=== PATIENT | female | born 1975 | race Caucasian/White ===

== ENCOUNTER 2016-09-19 11:01 | Emergency (ER) | payer SELFPAY ==
[~2016-09-19] VITALS: Ht 172.7 cm; Wt 125.0 kg
[2016-09-19 11:02] VITALS: BP 131/78; PULSE 83; RESP 15; TEMP 98.2; O2SAT 98
--- NOTE | 2016-09-19 11:14 | PD ---
HPI Chief Complaint: Facial Pain or Swelling Time Seen by Provider: 11:14 Travel History International Travel<30 days: No Contact w/Intl Traveler<30days: No Traveled to known affect area: No History of Present Illness HPI 41-year-old female presents to the ED for evaluation of facial edema, tenderness of the scalp since this morning. Patient states that she awoke with burning scalp pain and swelling of the forehead this morning. She complains of dull frontal headache. She denies fevers, pruritis, vision changes, dizziness, breathing difficulties, nausea, vomiting. She thinks this may be due to dying her hair with a new dye 3 days ago. She has never had a similar reaction. No treatment at home. [facility] Social History Tobacco Use: No Allergies-Medications (Allergen,Severity, Reaction): Coded Allergies: No Known Allergies (Unverified , 09/19/16) Reported Meds & Prescriptions Reported Meds & Active Scripts Active Prednisone 20 Mg Tab 20 Mg PO BID Benadryl Allergy (Diphenhydramine HCl) 25 Mg Tab 25 Mg PO Q4-6H PRN Review of Systems Except as stated in HPI: all other systems reviewed are Neg Physical Exam Narrative GENERAL: Well-nourished, well-developed [place] female in no acute distress. SKIN: Warm and dry. Mild, nontender, nonpitting edema of the forehead, extending to the eyebrows, HEAD: Normocephalic. Atraumatic. The scalp is tender and mildly edematous without erythema, warmth. EYES: No scleral icterus. No injection or drainage. PERRLA. EOMI. ENT: Pearly pickard tympanic membranes bilaterally. Nasal mucosa is moist. Oropharynx without erythema, edema or exudate. Uvula midline. Floor of mouth is soft. Airway patent. NECK: Supple, trachea midline. No JVD or lymphadenopathy. CARDIOVASCULAR: Regular rate and rhythm without murmurs, gallops, or rubs. RESPIRATORY: Breath sounds clear and equal bilaterally. No accessory muscle use. GASTROINTESTINAL: Abdomen soft, non-tender, nondistended. + Bowel sounds MUSCULOSKELETAL: No cyanosis, or edema. Ambulatory. Moves the extremities spontaneously. BACK: Nontender without obvious deformity. No CVA tenderness. Data Data Last Documented VS Vital Signs Date Time Temp Pulse Resp B/P Pulse Ox O2 Delivery O2 Flow Rate FiO2 09/19/16 13:15 78 16 130/72 98 09/19/16 11:02 98.2 Orders Iv Access Insert/Monitor (09/19/16 11:24) Diphenhydramine Inj (Benadryl Inj) (09/19/16 11:30) Prednisone (Deltasone) (09/19/16 11:30) Sodium Chlor 0.9% 1000 Ml Inj (Ns 1000 M (09/19/16 11:24) Sodium Chloride 0.9% Flush (Ns Flush) (09/19/16 11:30) MDM Medical Decision Making Medical Screen Exam Complete: Yes Emergency Medical Condition: Yes Differential Diagnosis allergic reaction versus angioedema versus contact dermatitis versus cellulitis versus other Narrative Course 41-year-old female presents to the ED for evaluation of facial edema, tenderness of the scalp since this morning. Patient states that she awoke with burning scalp pain and swelling of the forehead this morning. She complains of dull frontal headache. She denies fevers, vision changes, dizziness, breathing difficulties, nausea, vomiting. She thinks this may be due to dying her hair with a new dye 3 days ago. She has never had a similar reaction. Vitals reviewed. Physical exam reveals a nontoxic-appearing [place] female in no acute distress. The scalp is tender and mildly edematous but there is no edema or warmth. She does have very thick hair which limits the exam to some degree. There is nontender, non-pitting edema of the forehead to the eyebrows. Airway is patent. Floor of the mouth is soft. No cervical LAD. No lower extremity edema. IV was established. Patient was administered 1 L normal saline , IV Benadryl and 40mg prednisone by mouth. I suspect this is an allergic reaction. Will prescribe by mouth Benadryl and a short course of steroids. Patient is instructed to discontinue use of the hair dye, take medications as prescribed, return for worsening symptoms, otherwise follow up with primary care. She indicated understanding and is agreeable to the care plan. She is stable and discharged home. Diagnosis Primary Impression: Allergic reaction to dye Qualified Code: T50.995A - Allergic reaction to dye, initial encounter Referrals: Primary Care Physician Patient Instructions: Contact Dermatitis (ED), General Allergic Reaction (ED), General Instructions Additional Instructions: Rest, hydrate. Avoid the hair dye that you recently used. Continue Benadryl dosing today. First dose 330pm. Begin Prednisone dosing tomorrow morning. Cool showers to avoid worsening of symptoms. Follow up with the primary care. Return to the ED for worsening symptoms or any urgent or emergent medical addition. Med/Other Pt SpecificInfo: Prescription(s) given Scripts Prednisone 20 Mg Tab20 Mg PO BID #8 TAB Ref 0 Prov:Alex Khan MD 09/19/16 Diphenhydramine (Benadryl Allergy)25 Mg Tab25 Mg PO Q4-6H PRN (ALLERGIES) #15 TAB Ref 0 Prov:Alex Khan MD 09/19/16 Disposition: 01 DISCHARGE HOME Condition: Stable Dorene Hernandez Sep 19, 2016 11:14
[2016-09-19] MEDS ORDERED: SODIUM CHLOR 0.9% 1000 ML INJ 1,000 ML IV SCH (11:24)
[2016-09-19] MEDS ORDERED: diphenhydrAMINE HCL 50 MG/ML VIAL IVP ONE (11:30)
[2016-09-19] MEDS ORDERED: SODIUM CHLORIDE 0.9% FLUSH 10 ML FLUSH IV FLUSH PRN (11:30)
[2016-09-19] MEDS ORDERED: predniSONE 20 MG TAB PO ONE (11:30)
[2016-09-19] MEDS ORDERED: BENA25TA3 PO (12:37)
[2016-09-19] MEDS ORDERED: PRED20 PO (12:37)
[2016-09-19 13:15] VITALS: BP 130/72
[2016-09-20] MEDS ORDERED: PRED20 PO (11:44)
[2016-09-20] MEDS ORDERED: VIST50CA PO (11:44)
== END 2016-09-19 13:15 | disposition home or self-care (01) ==
LOC: NEPD 11:01
DX: T50.995A Adverse effect of other drugs, medicaments and biological substances, initial encounter (principal)
CPT/HCPCS: 96361; 96374; 99284; J1200; J7030; J7512

== ENCOUNTER 2016-09-20 11:17 | Emergency (ER) | payer SELFPAY ==
[~2016-09-20] VITALS: Ht 177.8 cm; Wt 126.0 kg
[~2016-09-20 11:17] MED LIST: BENA25TA3 PO; PRED20 PO
[2016-09-20 11:18] VITALS: BP 144/87; PULSE 73; RESP 18; TEMP 98.5; O2SAT 98
--- NOTE | 2016-09-20 11:32 | PD ---
Physical Exam Time Seen by Provider: 11:29 Narrative 41yo F c/o allergic reaction to hair dye. Was seen here yesterday with swelling of her forehead and woke up with swelling of bilateral eyes. Denies airway edema, SOB. Patient seen in triage. VS reviewed. Awaiting bed placement. Data Data Last Documented VS Vital Signs Date Time Temp Pulse Resp B/P Pulse Ox O2 Delivery O2 Flow Rate FiO2 09/20/16 11:18 98.5 73 18 144/87 98 Room Air MDM Supervised Visit with STACIE: Odalis Milan Sep 20, 2016 11:32
[2016-09-20] MEDS ORDERED: VIST50CA PO (11:44)
[2016-09-20] MEDS ORDERED: PRED20 PO (11:44)
--- NOTE | 2016-09-20 11:50 | PD ---
HPI . Facial edema Chief Complaint: Allergic/Adverse Reaction Time Seen by Provider: 11:36 Travel History International Travel<30 days: No Contact w/Intl Traveler<30days: No Traveled to known affect area: No History of Present Illness HPI Patient presents for recheck of facial edema. The patient was seen here yesterday and diagnosed with a localized allergic reaction secondary to hair dye. She was treated with Benadryl 25 mg every 4-6 hours as 20 mg twice a day. She states that she has been taking the medication as prescribed. She states her last dose of Benadryl was this morning. Despite that, the edema is worse rather than better today. PFSH Past Medical History ?: Not LMP: 09/18/16 Social History Alcohol Use: Yes (occassional) Tobacco Use: No Substance Use: Yes (marijuana) Allergies-Medications (Allergen,Severity, Reaction): Coded Allergies: No Known Allergies (Unverified , 09/19/16) Reported Meds & Prescriptions Reported Meds & Active Scripts Active Prednisone 20 Mg Tab 60 Mg PO DAILY 5 Days Vistaril (Hydroxyzine Pamoate) 50 Mg Cap 50 Mg PO QID PRN Review of Systems Except as stated in HPI: all other systems reviewed are Neg HENT: Positive: Other (scalp and facial edema) Physical Exam Narrative GENERAL: Awake and alert and in no acute distress. SKIN: Warm and dry. She does have edema of her face particularly around her eyes. HEAD: Atraumatic. Normocephalic. EYES: Pupils equal and round. NECK: Trachea midline. CARDIOVASCULAR: Regular rate and rhythm. RESPIRATORY: No accessory muscle use. No respiratory difficulty. MUSCULOSKELETAL: No obvious deformities. No edema. NEUROLOGICAL: Awake and alert. No obvious cranial nerve deficits. Motor grossly within normal limits. Normal speech. PSYCHIATRIC: Appropriate mood and affect; insight and judgment normal. Data Data Last Documented VS Vital Signs Date Time Temp Pulse Resp B/P Pulse Ox O2 Delivery O2 Flow Rate FiO2 09/20/16 11:18 98.5 73 18 144/87 98 Room Air MDM Medical Decision Making Medical Screen Exam Complete: Yes Emergency Medical Condition: Yes Medical Record Reviewed: Yes (her record from yesterday was reviewed. Please see HPI for pertinent details.) Differential Diagnosis The differential diagnosis of the skin rash includes but is not limited to allergic urticaria, scabies, insect bites, contact dermatitis Narrative Course Patient presents complaining with worsening rather than improving symptoms. She was seen here yesterday with a localized allergic reaction to hair dye. Her dose of Benadryl as well as 25 mg every 4-6 hours and her dose of prednisone is 20 mg twice a day. I will change her medication to Vistaril 50 mg every 4-6 hours rather than Benadryl and prednisone 60 mg daily. Diagnosis Primary Impression: Allergic reaction to dye Qualified Code: T50.995D - Allergic reaction to dye, subsequent encounter Patient Instructions: General Instructions, General Allergic Reaction (ED) Departure Forms: Tests/Procedures Additional Instructions: Cool compresses to your face may also help swelling. Med/Other Pt SpecificInfo: Prescription(s) given, Existing Med Changed, Med Stopped Scripts Prednisone 20 Mg Tab60 Mg PO DAILY 5 Days Ref 0 Prov:Sirena Vargas MD 09/20/16 Hydroxyzine Pamoate (Vistaril)50 Mg Cap50 Mg PO QID PRN (ALLERGIC REACTION) #30 CAP Ref 0 Prov:Sirena Vargas MD 09/20/16 Disposition: 01 DISCHARGE HOME Condition: Stable Sirena Vargas MD Sep 20, 2016 11:50
== END 2016-09-20 11:49 | disposition home or self-care (01) ==
LOC: NEPD 11:17
DX: T78.49XA Other allergy, initial encounter (principal); F12.90 Cannabis use, unspecified, uncomplicated; X58.XXXA Exposure to other specified factors, initial encounter
CPT/HCPCS: 99284